=== PATIENT | male | born 1980 | race African-American/Black ===

== ENCOUNTER → 2016-06-11 | Outpatient (REF) | payer OTHER ==
[~2016-06-11] MED LIST: BETA0.3I SC; BIAX250T10 PO; GABA-283 PO; IBUP80TA PO; OXYC5CAP28 PO; RITA10TA PO; ROBA500T PO
[2016-06-11 11:08] LABS: BASO % 0.4 % (0.0-1.0); EOS # 0.3 K/mm3 (0.0-0.50); EOS % 3.6 % (0.0-3.0); LARGE UNSTAINED CELL # 0.1 K/mm3 (0.0-0.4); LARGE UNSTAINED CELL % 1.4 % (0.0-4.0); LYMPH % 22.5 % (24.0-44.0); MEAN CORPUSCULAR HEMOGLOBIN 29.1 pg (27.0-33.0); MEAN CORPUSCULAR VOLUME 91.1 fl (80.0-96.0); MONO # 0.4 K/mm3 (0.0-0.8); MONO % 4.9 % (0.0-5.0); NEUTROPHILS # 5.8 K/mm3 (1.8-7.7); NEUTROPHILS % 67.3 % (36.0-66.0); PLATELET COUNT, AUTOMATED 249 k/mm3 (150-450); RED CELL DISTRIBUTION WIDTH 13.4 % (11.5-14.5); WHITE BLOOD COUNT 8.6 K/mm3 (4.0-10.0)
[2016-06-11 11:55] LABS: ALBUMIN 3.6 GM/DL (3.2-5.2); ALBUMIN/GLOBULIN RATIO 1.16 (1.00-1.93); ALKALINE PHOSPHATASE 79 U/L (45-117); ALT/SGPT 31 U/L (12-78); ANION GAP 6 MEQ/L (8-16); AST/SGOT 14 U/L (15-37); BILIRUBIN,TOTAL 0.3 MG/DL (0.2-1.0); BLOOD UREA NITROGEN 14 MG/DL (7-18); CALCIUM LEVEL 8.4 MG/DL (8.5-10.1); CARBON DIOXIDE LEVEL 28 MEQ/L (21-32); CHLORIDE LEVEL 109 MEQ/L (98-107); CREATININE FOR GFR 0.87 MG/DL (0.70-1.30); GLOMERULAR FILTRATION RATE > 60.0 (>60); GLUCOSE, FASTING 97 MG/DL (70-105); IMMUNOGLOBULIN G 1450 MG/DL (681-1648); IMMUNOGLOBULIN M 59.3 MG/DL (40-230); POTASSIUM SERUM 4.3 MEQ/L (3.5-5.1); SODIUM LEVEL 143 MEQ/L (136-145); TOTAL PROTEIN 6.7 GM/DL (6.4-8.2)
[2016-06-12 09:34] LABS: HEPATITIS B SURFACE ANTIBODY NEGATIVE (POSITIVE)
== END ==
LOC: M LAB REF 10:56
PROVIDERS: ATTEND Psychiatry & Neurology Vascular Neurology
DX: G35 Multiple sclerosis (principal)

== ENCOUNTER 2016-08-24 14:12 | Emergency (ER) | payer OTHER ==
[~2016-08-24] VITALS: Ht 172.7 cm; Wt 99.8 kg
[2016-08-24] MEDS ORDERED: METH2.5TA PO (14:35)
[2016-08-24] MEDS ORDERED: BACL-67 PO (14:35)
[2016-08-24] MEDS ORDERED: TERA5CA PO (14:35)
[2016-08-24] MEDS ORDERED: MELO7.5T6 PO (14:35)
[2016-08-24] MEDS ORDERED: RITA20TA PO (14:35)
[2016-08-24] MEDS ORDERED: DALFAMPRIDINE PO (14:35)
[2016-08-24] MEDS ORDERED: GABA600T PO (14:35)
--- NOTE | 2016-08-24 14:46 | REP ---
CT Head without contrast HISTORY: Infarction COMPARISON: None There is no intraparenchymal hemorrhage, acute infarct, mass or midline shift. The ventricular system is normal in appearance. There is no extra cerebral collection. There is no fracture. The visualized sinuses are clear. IMPRESSION: There is no intracranial lesion. Signed by Marlon Miller MD 08/24/2016 02:37 P
[2016-08-24 15:23] LABS: ANION GAP 6 MEQ/L (8-16); BLOOD UREA NITROGEN 13 MG/DL (7-18); CALCIUM LEVEL 9.4 MG/DL (8.5-10.1); CARBON DIOXIDE LEVEL 29 MEQ/L (21-32); CHLORIDE LEVEL 104 MEQ/L (98-107); CREATININE FOR GFR 0.87 MG/DL (0.70-1.30); GLOMERULAR FILTRATION RATE > 60.0 (>60); GLUCOSE, FASTING 111 MG/DL (70-105); POTASSIUM SERUM 3.6 MEQ/L (3.5-5.1); SODIUM LEVEL 139 MEQ/L (136-145)
--- NOTE | 2016-08-24 15:32 | REP ---
Chest one-view HISTORY: Infarction Comparison: 07/17/2016 There is elevation of the right hemidiaphragm. The lungs are clear. The heart is normal in size. The pulmonary vasculature is normal in appearance. Impression: No acute disease. Signed by Marlon Miller MD 08/24/2016 03:23 P
[2016-08-24 15:34] LABS: BASO % 0.4 % (0.0-1.0); EOS # 0.3 K/mm3 (0.0-0.50); LARGE UNSTAINED CELL # 0.2 K/mm3 (0.0-0.4); LARGE UNSTAINED CELL % 2.1 % (0.0-4.0); LYMPH % 10.8 % (24.0-44.0); MEAN CORPUSCULAR HEMOGLOBIN 29.7 pg (27.0-33.0); MEAN CORPUSCULAR HGB CONC 32.3 g/dl (32.0-36.5); MEAN CORPUSCULAR VOLUME 91.8 fl (80.0-96.0); MONO # 0.6 K/mm3 (0.0-0.8); MONO % 6.6 % (0.0-5.0); NEUTROPHILS # 6.8 K/mm3 (1.8-7.7); NEUTROPHILS % 77.1 % (36.0-66.0); PLATELET COUNT, AUTOMATED 255 k/mm3 (150-450); RED CELL DISTRIBUTION WIDTH 13.7 % (11.5-14.5); WHITE BLOOD COUNT 8.8 K/mm3 (4.0-10.0)
[2016-08-24 16:18] VITALS: BP 150/73
[2016-08-24] MEDS ORDERED: GABAPENTIN 300 MG CAP PO ONE (16:30)
[2016-08-24] MEDS ORDERED: BACLOFEN 10 MG TAB PO ONE (16:30)
--- NOTE | 2016-08-25 08:15 | ECGEPIP ---
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
== END 2016-08-24 17:55 | disposition home or self-care (01) ==
LOC: M ED 15:18
DX: R20.0 Anesthesia of skin (principal); G35 Multiple sclerosis; Z79.899 Other long term (current) drug therapy

== ENCOUNTER → 2016-09-11 | Outpatient (REF) | payer OTHER ==
[~2016-09-11] MED LIST changes: +BACL-67 PO; +DALFAMPRIDINE PO; +GABA600T PO; +MELO7.5T6 PO; +METH2.5TA PO; +RITA20TA PO; +TERA5CA PO
[2016-09-11 14:12] LABS: BASO # 0.1 K/mm3 (0.0-0.2); BASO % 0.6 % (0.0-1.0); EOS # 0.4 K/mm3 (0.0-0.50); EOS % 3.5 % (0.0-3.0); LYMPH # 1.8 K/mm3 (1.5-4.5); LYMPH % 14.5 % (24.0-44.0); MEAN CORPUSCULAR HEMOGLOBIN 30.6 pg (27.0-33.0); MEAN CORPUSCULAR HGB CONC 33.5 g/dl (32.0-36.5); MEAN CORPUSCULAR VOLUME 91.4 fl (80.0-96.0); MONO # 0.5 K/mm3 (0.0-0.8); NEUTROPHILS # 9.1 K/mm3 (1.8-7.7); NEUTROPHILS % 76.8 % (36.0-66.0); RED CELL DISTRIBUTION WIDTH 13.6 % (11.5-14.5); WHITE BLOOD COUNT 11.8 K/mm3 (4.0-10.0)
[2016-09-11 14:39] LABS: ALBUMIN/GLOBULIN RATIO 0.98 (1.00-1.93); ALKALINE PHOSPHATASE 99 U/L (45-117); ALT/SGPT 37 U/L (12-78); ANION GAP 7 MEQ/L (8-16); AST/SGOT 17 U/L (15-37); BILIRUBIN,TOTAL 0.6 MG/DL (0.2-1.0); BLOOD UREA NITROGEN 16 MG/DL (7-18); CALCIUM LEVEL 9.3 MG/DL (8.5-10.1); CARBON DIOXIDE LEVEL 27 MEQ/L (21-32); CHLORIDE LEVEL 105 MEQ/L (98-107); CREATININE FOR GFR 0.98 MG/DL (0.70-1.30); FREE T4 0.81 NG/DL (0.76-1.46); GLOMERULAR FILTRATION RATE > 60.0 (>60); GLUCOSE, FASTING 76 MG/DL (70-105); POTASSIUM SERUM 4.1 MEQ/L (3.5-5.1); SODIUM LEVEL 139 MEQ/L (136-145); TOTAL PROTEIN 8.1 GM/DL (6.4-8.2)
== END ==
LOC: M LAB REF 13:20
PROVIDERS: ATTEND Family Medicine
DX: R60.9 Edema, unspecified (principal)

== ENCOUNTER → 2016-09-15 | Outpatient (REF) | payer OTHER ==
[~2016-09-15] MED LIST changes: -BACL-67 PO; +BACL1TAB9 PO; -MELO7.5T6 PO; +MELO7.5T7 PO
[2016-09-15 21:02] LABS: CALCIUM OXALATE CRYSTALS LARGE
== END ==
LOC: M SMT 09:23
PROVIDERS: ATTEND Urology
DX: R39.12 Poor urinary stream (principal)

== ENCOUNTER → 2016-09-17 | Outpatient (REF) | payer OTHER | LOC: M LAB REF 11:01 | PROVIDERS: ATTEND Family Medicine | DX: R60.9 Edema, unspecified (principal); R33.9 Retention of urine, unspecified ==

== ENCOUNTER → 2017-06-29 | Outpatient (REF) | payer OTHER, MEDICAID | LOC: M LAB REF 15:25 | DX: G35 Multiple sclerosis (principal) ==

== ENCOUNTER 2018-05-18 20:18 | Emergency (ER) | payer MEDICAID, OTHER ==
[~2018-05-18] VITALS: Ht 170.2 cm; Wt 118.2 kg
[~2018-05-18 20:18] MED LIST changes: -BETA0.3I SC; -BIAX250T10 PO; -GABA-283 PO; +GABA-845 PO; -GABA600T PO; +GABA600T4 PO; +METH2.5T48 PO; -METH2.5TA PO; -TERA5CA PO; +TERA5CAP3 PO; +[UNRECOGNIZED DRUG - CODE] PO; +[UNRECOGNIZED DRUG - CODE] SC
[2018-05-18] MEDS ORDERED: PERC10TA26 (20:29)
[2018-05-18] MEDS ORDERED: TIZA6CAP (20:29)
[2018-05-18] MEDS ORDERED: NAPROXEN 250 MG TAB PO ONE (21:30)
[2018-05-18] MEDS ORDERED: GABAPENTIN 300 MG CAP PO ONE (22:45)
[2018-05-18] MEDS ORDERED: NAPR-50 PO (23:07)
[2018-05-19] MEDS ORDERED: BACLOFEN 10 MG TAB PO ONE (02:30)
[2018-05-19] MEDS ORDERED: PERCOCET 5MG/325MG TAB PO ONE (03:00)
[2018-05-19 08:03] VITALS: BP 122/79
--- NOTE | 2018-05-19 08:04 | REP ---
Right upper extremity duplex venous ultrasound: Repeat dictation. Preliminary report is provided at the time of the exam by [facility]. History: Arm pain and swelling. Findings: The right internal jugular, axillary, brachial, basilic, and cephalic veins are anechoic and compressible in the left upper extremity. Color flow imaging is homogeneous. Spectral Doppler interrogation is unremarkable. There is no evidence of right upper extremity venous thrombosis. Impression: Negative right upper extremity duplex venous ultrasound. No evidence of venous thrombosis. Electronically Signed by Sebastian Smith MD 05/19/2018 07:55 A
== END 2018-05-19 08:32 | disposition home or self-care (01) ==
LOC: M ED 20:18
DX: M25.511 Pain in right shoulder (principal); G35 Multiple sclerosis; Z79.899 Other long term (current) drug therapy; F17.210 Nicotine dependence, cigarettes, uncomplicated

== ENCOUNTER 2018-11-04 08:14 | Outpatient (CLI) | payer MEDICAID ==
[2018-11-04] VITALS (8 sets, daily range): BP systolic 109–121; BP diastolic 60–71
[~2018-11-04] VITALS: Ht 170.2 cm; Wt 118.2 kg
[~2018-11-04 08:14] MED LIST changes: +NAPR-837 PO; +PERC10TA26; +TIZA6CAP
[2018-11-04] MEDS ORDERED: ACETAMINOPHEN TAB 650MG DOSE (2X325MG) PO ONE (09:00)
[2018-11-04] MEDS ORDERED: diphenhydrAMINE 25 MG CAP PO ONE (09:00)
[2018-11-04] MEDS ORDERED: methylPREDNISolone INJ 125 MG/2 ML VIAL (J2930) IV ONE (09:00)
[2018-11-04] MEDS ORDERED: 0.22 MICRON FILTER (METHACHOLINE/OCREVUS) XX ONE (09:00)
[2018-11-04] MEDS ORDERED: OCRELIZUMAB 600 MG in NS 500 ML IV ONE (09:00)
[2018-11-04] MEDS ORDERED: GABAPENTIN 300 MG CAP PO ONE (11:00)
[2018-11-04] MEDS ORDERED: BACLOFEN 10 MG TAB PO ONE (11:00)
== END 2018-11-04 12:50 | disposition home or self-care (01) ==
LOC: M INFU 08:14
PROVIDERS: ATTEND Psychiatry & Neurology Neurology
DX: G35 Multiple sclerosis (principal)
CPT/HCPCS: 96375; 96413; 96415; J2350; J2930

== ENCOUNTER → 2018-11-09 | Outpatient (CLI) | payer MEDICAID ==
[~2018-11-09] MED LIST changes: +PROHANCE 279.3MG/ML 15ML VIAL (A9576) As Ordered ONE; +PROHANCE 279.3MG/ML 5ML VIAL (A9576) As Ordered ONE
--- NOTE | 2018-11-09 14:35 | REPVR ---
EXAM: MR Cervical Spine Without and With Contrast EXAM DATE/TIME: 11/09/2018 12:54 PM CLINICAL HISTORY: 38 years old, male; Condition or disease; Patient HX: HX ms, f/u; Additional info: Multiple sclerosis g35 TECHNIQUE: Imaging protocol: Multiplanar magnetic resonance images of the cervical spine without and with intravenous contrast. Contrast material: PROHANCE; Contrast volume: 19 ml; Contrast route: IV; COMPARISON: No relevant prior studies available. FINDINGS: Vertebrae: There is straightening of the normal cervical lordosis. Spinal cord: There is a focal decrease in size of the cervical cord from superior end plate of C5 to the superior endplate of C7.. No cord compression. No areas of abnormal enhancement noted on the postcontrast images. C2-C3: No significant disc disease. No significant spinal stenosis. C3-C4: Mild uncovertebral hypertrophy and facet arthropathy noted on the right. No significant spinal stenosis. Mild right foraminal stenosis. C4-C5: Mild uncovertebral and facet arthropathy on the right. Mild right foraminal stenosis.. No significant spinal stenosis. C5-C6: No significant disc disease. No significant spinal stenosis. C6-C7: No significant disc disease. No significant spinal stenosis. C7-T1: No significant disc disease. No significant spinal stenosis. Vertebral arteries: Expected flow voids in the vertebral arteries. Soft tissues: Unremarkable. IMPRESSION: 1. 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 No areas of enhancement to suggest active demyelination. 2. Facet arthropathy and degenerative disc disease with mild right foraminal stenosis at C3-4 and C4-5. Electronically signed by: Julia Salinas On 11/09/2018 14:35:30 PM
--- NOTE | 2018-11-09 15:27 | REPVR ---
EXAM: MR Head Without and With Contrast EXAM DATE/TIME: 11/09/2018 12:54 PM CLINICAL HISTORY: 38 years old, male; Condition or disease; Multiple sclerosis; Patient HX: HX ms, f/u; Additional info: Multiple sclerosis g35 TECHNIQUE: Imaging protocol: MR of the head without and with intravenous contrast. Contrast material: PROHANCE; Contrast volume: 19 ml; Contrast route: IV; COMPARISON: CT Head without contrast 08/24/2016 2:28 PM MR C-spine 11/09/2018. FINDINGS: Brain: 4 lesions in the brain are hyperintense on T2 and FLAIR images. They are consistent with the clinical history of MS plaques. Because none of them enhance, there is no evidence of active demyelination. -In the superior right parietal lobe, a lesion in the cortical ramos matter is 8 x 7 x 3 mm (series 601 image 19 and series 501 image 203). -At the genu of the left internal capsule, the lesion is 6 x 5 x 4 mm (series 601 image 15 and series 501 image 137). -In the deep white matter of the left frontal lobe, the lesion is 6 x 5 x 4 mm (series 601 image 17 and series 501 image 119). -In the posterior right temporal lobe, adjacent to the atrium of the right lateral ventricle, a lesion is 8 x 7 x 5 mm (series 601 image 13 and series 501 image 212). There is no mass effect. There is no evidence of acute cortical infarct or intracranial mass lesion. Ramos-white matter differentiation is normal. No diffusion restriction to indicate a recent ischemic event. Fourth ventricle and posterior fossa contents are unremarkable. No extra-axial fluid collections. Midline shift: No mass effect or midline shift. Ventricles: Ventricles are within normal limits of size and configuration. Bones/joints: The calvarium is unremarkable. Soft tissues: Normal. Sinuses: The paranasal sinuses are unremarkable. No acute sinusitis. Mastoid air cells: No significant mastoid disease. Orbits: The orbital contents are unremarkable. IMPRESSION: 1. 4 lesions in the brain are hyperintense on T2 and FLAIR images. They are consistent with the clinical history of MS plaques. They measure up to 8 mm. Because none of them enhance, there is no evidence of active demyelination. They are in the right parietal ramos matter, genu of the left internal capsule, white matter of the left frontal lobe and white matter of the right temporal lobe. 2. No diffusion restriction to indicate a recent ischemic event. 3. No acute intracranial abnormalities. Electronically signed by: Alcides Rothman On 11/09/2018 15:27:14 PM
== END ==
LOC: M RAD 10:19
PROVIDERS: ATTEND Student in an Organized Health Care Education/Training Program
DX: G35 Multiple sclerosis (principal); M48.02 Spinal stenosis, cervical region; M50.321 Other cervical disc degeneration at C4-C5 level; M50.31 Other cervical disc degeneration, high cervical region
CPT/HCPCS: 70553; 72156; A9576

== ENCOUNTER → 2018-11-11 | Outpatient (CLI) | payer MEDICAID ==
--- NOTE | 2018-11-11 14:23 | REPVR ---
EXAM: MR Thoracic Spine Without and With Contrast EXAM DATE/TIME: 11/11/2018 11:54 AM CLINICAL HISTORY: 38 years old, male; Condition or disease; Patient HX: HX ms; Additional info: G35 ms TECHNIQUE: Imaging protocol: Multiplanar magnetic resonance images of the thoracic spine without and with intravenous contrast. Contrast material: PROHANCE; Contrast volume: 19 ml; Contrast route: IV; COMPARISON: No relevant prior studies available. FINDINGS: The exam is limited by some motion. Vertebral body heights are intact. Alignment is maintained. There is mild multilevel facet arthrosis, disc space narrowing and marginal osteophyte formation. There are several faint areas of increased signal in the spinal cord. This includes on the right aspect at the T2-3 level, centrally at the T5 level and along the central and right aspects at the T11 and T12 levels. There is no enlargement of the caliber of the cord. No abnormal enhancement is evident to indicate active demyelination. There is a 1.1 x 0.8 cm focus of mildly increased T2 signal which may be along the lower aspect of the trachea at the orifice of the right main stem bronchus (image 701:[id number]). C7-T1: No significant disc displacement. T1-2: No significant disc displacement. T2-3: No significant disc displacement. T3-4: No significant disc displacement. T4-5: No significant disc displacement. T5-6: No significant disc displacement. T6-7: Small broad-based left paracentral protrusion without significant neural foraminal narrowing or spinal stenosis. T7-8: Very small broad-based left paracentral protrusion without significant neural foraminal narrowing or spinal stenosis. T8-9: No significant disc displacement. T9-10: No significant disc displacement. T10-11: No significant disc displacement. T11-12: Minimal bulge without significant neural foraminal narrowing or spinal stenosis. T12-L1: No significant disc displacement. If surgery is considered, recommend level confirmation. IMPRESSION: 1. Motion limited exam demonstrating several faint areas of increased signal in the spinal cord, without cord enlargement and without abnormal enhancement evident to indicate active demyelination. 2. 1.1 cm focus of increased signal which may be along the lower aspect of the trachea at the orifice of the right mainstem bronchus. Recommend chest CT for better characterization. 3. Mild multilevel disc desiccation indicating intervertebral disk degeneration with small disc displacements as described. Electronically signed by: Ankit Caballero On 11/11/2018 14:23:00 PM
== END ==
LOC: M RAD 10:06
PROVIDERS: ATTEND Student in an Organized Health Care Education/Training Program
DX: G35 Multiple sclerosis (principal)
CPT/HCPCS: 72157; A9576

== ENCOUNTER → 2018-12-15 | Outpatient (CLI) | payer MEDICAID ==
[~2018-12-15] MED LIST changes: -PROHANCE 279.3MG/ML 15ML VIAL (A9576) As Ordered ONE; -PROHANCE 279.3MG/ML 5ML VIAL (A9576) As Ordered ONE
--- NOTE | 2018-12-15 12:50 | REP ---
Bilateral lower extremity artery duplex ultrasound: Right lower extremity: Brachial peak systole: 110 mmHg. Dorsalis pedis peak systole: 126 mmHg. ET a peak systole: 140 mmHg. LEXX 1.17 Peak Systolic Phasicity Velocity LUGGAGE ATTENDANT 123.1 triphasic Profunda 84.1 triphasic SFA prox 161.5 triphasic SFA mid 84.8 triphasic SFA dist 84.8 triphasic Pop 58.3 triphasic MARGARET prox 47.5 triphasic Tib/P tr 61.6 triphasic LEATHER BELT SHAPER pr 52.9 triphasic LEATHER BELT SHAPER dst 39.6 triphasic MARGARET dst 53.1 triphasic Left lower extremity: Brachial peak systole: 120 mmHg. Dorsalis pedis peak systole: 120 mmHg. LEATHER BELT SHAPER peak systole: 120 mmHg. LEXX 1.0 Peak Systolic Phasicity Velocity LUGGAGE ATTENDANT 126.9 triphasic Profunda 95.0 triphasic SFA prox 109.3 triphasic SFA mid 85.5 triphasic SFA dist 84.2 triphasic Pop 67.6 triphasic MARGARET prox 37.1 triphasic Tib/P tr 52.9 triphasic LEATHER BELT SHAPER pr 54.5 triphasic LEATHER BELT SHAPER dst 42.5 triphasic MARGARET dst 43.6 triphasic There is mild atheromatous plaque bilaterally. There are no significant stenoses on the right on the left. All wave forms are triphasic. The the ABIs are normal. Electronically Signed by Brian Quan MD 12/15/2018 12:42 P
== END ==
LOC: M RAD 11:00
PROVIDERS: ATTEND Surgery
DX: R09.89 Other specified symptoms and signs involving the circulatory and respiratory systems (principal); I70.203 Unspecified atherosclerosis of native arteries of extremities, bilateral legs

== ENCOUNTER → 2019-04-13 | Outpatient (CLI) | payer MEDICAID ==
[~2019-04-13] MED LIST changes: +LEXA5TAB13 PO; +LIDOCAINE 1% MDV 20ML VIAL As Ordered ONE; +MIDAZOLAM INJ 2 MG/2 ML VIAL (J2250) As Ordered ONE; +ceFAZolin 1GM INJ (J0690 PER 500MG) As Ordered ONE; +diphenhydrAMINE INJ 50MG/ML VIAL (J1200) As Ordered ONE; +fentaNYL 100 MCG/2 ML INJECTION (J3010) As Ordered ONE
--- NOTE | 2019-04-13 14:32 | IRHP ---
[facility] IR Pre-Procedure H & P General Date of Service: Apr 13, 2019 Procedure: Same Day Surgery Interval History and Physical I have seen the patient and reviewed last H & P performed within 30 days. There is no significant interval change. History of Present Illness Chief Complaint The patient is a 39-year-old male admitted with a reason for visit of Ms, Multiple Uti's. PRE-PROCEDURE DIAGNOSIS: MS HEART: normal rate. LUNGS: normal breathing at rest. ASA Classification ASA Classification: III-Severe systemic dis. Mallampati Score: II NPO: Yes Problems with prior sedation: No Obstructive Sleep Apnea: Yes Plan moderate sedation Allergies Coded Allergies: No Known Drug Allergies (Verified Allergy, Unknown, 11/04/18) Home Medications Scheduled Baclofen (Baclofen), 20 MG PO QID, (Reported) Gabapentin (Gabapentin), 600 MG PO QID, (Reported) Naproxen (Naprosyn), 500 MG PO BID Terazosin HCl (Terazosin HCl), 5 MG PO DAILY, (Reported) Miscellaneous Medications Escitalopram Oxalate (Lexapro), 5 MG PO, (Reported) Discontinued Medications Oxycodone HCl/Acetaminophen (Percocet 10-325 mg Tablet), (Reported) Discontinued Reason: Pt states not taking Tizanidine HCl (Tizanidine HCl), (Reported) Discontinued Reason: Pt states not taking ARACELI LORENZO MD Apr 13, 2019 14:31
[2019-04-13 14:45] LABS: HEMATOCRIT 45.9 % (42.0-52.0); HEMOGLOBIN 14.2 g/dl (13.5-17.5); MEAN CORPUSCULAR HEMOGLOBIN 27.4 pg (27.0-33.0); MEAN CORPUSCULAR HGB CONC 30.9 g/dl (32.0-36.5); MEAN CORPUSCULAR VOLUME 88.6 fl (80.0-96.0); PLATELET COUNT, AUTOMATED 271 10^3/uL (150-450); RED BLOOD COUNT 5.18 10^6/uL (4.30-6.10); WHITE BLOOD COUNT 7.3 10^3/uL (4.0-10.0)
--- NOTE | 2019-04-13 15:31 | POST-OPPD ---
Postoperative Procedure Note Date Of Procedure: Apr 13, 2019 Time Of Procedure: 15:30 PREOPERATIVE DIAGNOSIS: MS POSTOPERATIVE DIAGNOSIS: same FINDINGS: patent right IJ PROCEDURE: right side port SURGEON: ashutosh ANESTHESIA: mod sed ESTIMATED BLOOD LOSS: < 5 ml COMPLICATIONS: none POSTOPERATIVE CONDITION: stable ARACELI LORENZO MD Apr 13, 2019 15:31
[2019-04-13 17:15] VITALS: BP 130/86
--- NOTE | 2019-04-14 14:38 | REP ---
IR Ultrasound and fluoroscopy-guided port placement. IR Ultrasound of the neck. IR Moderate sedation. Clinical information: Multiple sclerosis. Physician: Dr. Keller. Procedure: The patient was advised of the benefits, risks, and alternatives of the procedure and informed consent was obtained. A time-out was performed with verification of the patient's name, MRN, site of procedure and type of procedure to be performed. The patient was positioned in the supine position on the angiographic table. The site was prepped and draped in the usual sterile fashion. Moderate sedation was performed by the physician including the presence of an independent trained observer who assisted and monitored the patient's level of consciousness and physiologic status. Following the administration of fentanyl and Versed, the physician spent 45 minutes of continuous face to face time with the patient. Ultrasound of the neck reveals a patent and compressible right internal jugular vein. A web merchant radiograph reveals no gross abnormality. The neck and anterior chest wall were anesthetized with lidocaine. The right internal jugular vein was accessed using a microintroducer needle under ultrasound guidance, via a lateral approach. An 018 wire was advanced into the superior vena cava, the needle was removed and a microsheath was placed. An Amplatz wire was then passed into the inferior vena cava. An incision at the internal jugular vein access site and anterior chest wall were made using a scalpel. An incision was made at the anterior chest wall. A small pocket was created using a combination of blunt and sharp dissection. A tunneling device was then used to pass the catheter from the pocket to the neck puncture site. An 8-[employer] Smart power port was then positioned in the pocket. The catheter was then measured and cut. The introducer sheath was exchanged for a peel-away sheath. The catheter was passed through the peel-away sheath into the internal jugular vein and the peel-away sheath was removed. The port tip was positioned at the cavoatrial junction. The port was then accessed with a Sanford needle. The port flushes and aspirates well. The puncture site in the neck was closed. The chest wall incision was then closed with 2-0 Vicryl and 4-0 Monocryl. Glue and Steri-Strips were applied. A sterile dressing was then applied. The patient tolerated the procedure well and was returned to the PRU in stable condition. Estimated blood loss: <5 ml. Complications: None. Conclusion: 1. Successful placement of an 8-[employer] Smart power port via the right internal jugular vein. The port is ready for immediate use. 2. Patient to follow up in IR clinic in 2 weeks. Thank you for this referral. Electronically Signed by Susan Keller MD 04/14/2019 02:37 P
== END ==
LOC: M IRPRO 13:40
PROVIDERS: ATTEND Radiology Diagnostic Radiology
DX: G35 Multiple sclerosis (principal); G47.33 Obstructive sleep apnea (adult) (pediatric); Z79.899 Other long term (current) drug therapy; Z87.440 Personal history of urinary (tract) infections

== ENCOUNTER → 2019-04-25 | Outpatient (POV) | payer MEDICAID ==
[~2019-04-25] VITALS: Ht 172.7 cm; Wt 89.1 kg
[~2019-04-25] MED LIST changes: -LIDOCAINE 1% MDV 20ML VIAL As Ordered ONE; -MIDAZOLAM INJ 2 MG/2 ML VIAL (J2250) As Ordered ONE; -ceFAZolin 1GM INJ (J0690 PER 500MG) As Ordered ONE; -diphenhydrAMINE INJ 50MG/ML VIAL (J1200) As Ordered ONE; -fentaNYL 100 MCG/2 ML INJECTION (J3010) As Ordered ONE
[2019-04-25 10:00] VITALS: BP 127/84
--- NOTE | 2019-04-26 10:05 | IRPN ---
[facility] IR Progress Note IR Progress Note DATE: Apr 25, 2019 FOLLOW-UP: Doing well status post port placement. No fevers or chills. No complaints regarding port. ON EXAMINATION: Port site appears to be healing well. No redness, tenderness, fluctuance or discharge. IMPRESSION: Doing well status post port placement. No further follow-up scheduled unless initiated by patient or referring provider. Thank you for this referral Allergies Coded Allergies: No Known Drug Allergies (Verified Allergy, Unknown, 11/04/18) VS,Fishbone, I+O VS, Fishbone, I+O Vital Signs Date Time Temp Pulse Resp B/P (MAP) Pulse Ox O2 Delivery O2 Flow Rate FiO2 04/25/19 10:00 97.6 83 18 127/84 (98) 96 Room Air ARACELI LORENZO MD Apr 26, 2019 10:05
--- NOTE | 2019-04-26 11:31 | IRPN ---
[facility] IR Progress Note IR Progress Note DATE: Apr 25, 2019 FOLLOW-UP: Status post port placement. No issues. No fevers or chills. No pain at site. ON EXAMINATION: Port site appears soft nontender. No redness, discharge. IMPRESSION: Doing well status post port placement. No further follow-up scheduled unless initiated by patient or referring provider. Thank you for this referral Allergies Coded Allergies: No Known Drug Allergies (Verified Allergy, Unknown, 11/04/18) VS,Fishbone, I+O VS, Fishbone, I+O Vital Signs Date Time Temp Pulse Resp B/P (MAP) Pulse Ox O2 Delivery O2 Flow Rate FiO2 04/25/19 10:00 97.6 83 18 127/84 (98) 96 Room Air ARACELI LORENZO MD Apr 26, 2019 11:31
== END ==
LOC: M IRPOV 09:27
PROVIDERS: ATTEND Radiology Diagnostic Radiology
DX: Z45.2 Encounter for adjustment and management of vascular access device (principal)

== ENCOUNTER 2019-05-08 08:50 | Outpatient (CLI) | payer MEDICAID ==
[~2019-05-08] VITALS: Ht 172.7 cm; Wt 89.1 kg
[2019-05-08] MEDS ORDERED: methylPREDNISolone INJ 125 MG/2 ML VIAL (J2930) IV ONE (09:00)
[2019-05-08] MEDS ORDERED: diphenhydrAMINE 25 MG CAP PO ONE (09:00)
[2019-05-08] MEDS ORDERED: ACETAMINOPHEN TAB 650MG DOSE (2X325MG) PO ONE (09:00)
[2019-05-08 09:30] VITALS: BP 118/78
[2019-05-08] MEDS ORDERED: VALI2TAB PO (09:56)
[2019-05-08] MEDS ORDERED: ZANA2CAP PO (09:57)
[2019-05-08] MEDS ORDERED: OCRELIZUMAB 600 MG in NS 500 ML IV ONE (10:00)
[2019-05-08] MEDS ORDERED: SODIUM CHLORIDE 0.9% INJ 10 ML SYR IV ONE (10:00)
[2019-05-08 10:30] VITALS: BP 133/72
[2019-05-08 11:00] VITALS: BP 131/68
[2019-05-08 12:00] VITALS: BP 133/76
[2019-05-08 13:55] VITALS: BP 119/72
== END 2019-05-08 14:15 | disposition home or self-care (01) ==
LOC: M INFU 08:50
PROVIDERS: ATTEND Psychiatry & Neurology Neurology
DX: G35 Multiple sclerosis (principal)
CPT/HCPCS: 96365; 96366; 96375; J1642; J2350; J2930

== ENCOUNTER 2019-11-06 09:09 | Outpatient (CLI) | payer MEDICAID ==
[~2019-11-06 09:09] MED LIST changes: +VALI2TAB PO; +ZANA2CAP PO
[2019-11-06] MEDS ORDERED: diphenhydrAMINE 25MG CAP As Ordered ONE (09:36)
[2019-11-06] MEDS ORDERED: methylPREDNISolone 125MG 2ML VIAL As Ordered ONE (09:36)
[2019-11-06] MEDS ORDERED: OCRELIZUMAB 300MG 10ML (OCREVUS) ONE (09:36)
[2019-11-06] MEDS ORDERED: ACETAMINOPHEN TAB 650MG DOSE (2X325MG) As Ordered ONE (09:36)
== END 2019-11-06 14:30 | disposition home or self-care (01) ==
LOC: M INFU 09:09
PROVIDERS: ATTEND Psychiatry & Neurology Neurology
DX: G35 Multiple sclerosis (principal)
CPT/HCPCS: 96375; 96413; 96415; J1642; J2350; J2930

== ENCOUNTER 2021-02-26 09:23 | Outpatient (CLI) | payer MEDICAID ==
[2021-02-26] VITALS (7 sets, daily range): BP systolic 108–161; BP diastolic 68–91
[~2021-02-26 09:23] MED LIST changes: +GABA-283 PO; -GABA-845 PO; +SODIUM CHLORIDE 0.9% INJ 10 ML SYR IV SCH
[2021-02-26] MEDS ORDERED: methylPREDNISolone 125MG 2ML VIAL IV ONE (10:00)
[2021-02-26] MEDS ORDERED: diphenhydrAMINE 25MG CAP PO ONE (10:00)
[2021-02-26] MEDS ORDERED: OCRELIZUMAB 600 MG in NS 500 ML IV ONE (10:00)
[2021-02-26] MEDS ORDERED: ACETAMINOPHEN TAB 650MG DOSE (2X325MG) PO ONE (10:00)
== END 2021-02-26 14:50 | disposition home or self-care (01) ==
LOC: M INFU 09:23
PROVIDERS: ATTEND Psychiatry & Neurology Neurology
DX: G35 Multiple sclerosis (principal)
CPT/HCPCS: 96365; 96366; 96375; J1642; J2350; J2930

== ENCOUNTER 2021-09-04 09:53 | Outpatient (CLI) | payer MEDICAID ==
[~2021-09-04] VITALS: Ht 172.7 cm; Wt 89.0 kg
[2021-09-04] VITALS (7 sets, daily range): BP systolic 126–160; BP diastolic 66–88
[~2021-09-04 09:53] MED LIST changes: +ACETAMINOPHEN TAB 650MG DOSE (2X325MG) PO ONE; +OCRELIZUMAB 600 MG in NS 500 ML IV ONE; +diphenhydrAMINE 25MG CAP PO ONE; +methylPREDNISolone 125MG 2ML VIAL IV ONE
[2021-09-04] MEDS ORDERED: OCRELIZUMAB 600 MG in NS 500 ML IV ONE (10:00)
[2021-09-04] MEDS ORDERED: ACETAMINOPHEN TAB 650MG DOSE (2X325MG) PO ONE (10:00)
[2021-09-04] MEDS ORDERED: methylPREDNISolone 125MG 2ML VIAL IV ONE (10:00)
[2021-09-04] MEDS ORDERED: diphenhydrAMINE 25MG CAP PO ONE (10:00)
== END 2021-09-04 13:25 | disposition home or self-care (01) ==
LOC: M INFU 09:53
PROVIDERS: ATTEND Psychiatry & Neurology Neurology
DX: G35 Multiple sclerosis (principal)
CPT/HCPCS: 96365; 96366; 96375; J1642; J2350; J2930

== ENCOUNTER → 2022-03-11 | Outpatient (CLI) | payer MEDICAID ==
[2022-03-11] VITALS (7 sets, daily range): BP systolic 133–176; BP diastolic 85–116
[~2022-03-11] MED LIST changes: -SODIUM CHLORIDE 0.9% INJ 10 ML SYR IV SCH
== END ==
LOC: M INFU 09:55
PROVIDERS: ATTEND Psychiatry & Neurology Neurology
DX: G35 Multiple sclerosis (principal)
CPT/HCPCS: 96365; 96366; 96375; J2350; J2930